=== PATIENT | male | born 1975 | race Caucasian/White ===

== ENCOUNTER → 2016-12-15 | Outpatient (CLI) | payer OTHER ==
--- NOTE | 2016-12-15 22:21 | MR ---
EXAMINATION TYPE: MR lumbar spine wo con DATE OF EXAM: 12/15/2016 COMPARISON: NONE HISTORY: Lumbar pain per order. Low back pain x 1-2 years per patient. TECHNIQUE: Multiplanar, multisequence imaging of the lumbar spine is performed without IV contrast. FINDINGS: Sagittal images of the lumbar spine show vertebral body heights and alignment to appear sat isfactory. There is disc desiccation L4-L5 and L5-S1 levels with small posterior disc herniations not ed on sagittal images. Increased signal posteriorly consistent with annular tear L4-L5 level is seen. The disc space heights are fairly well-maintained. The conus medullaris is normal in position and si gnal ending at mid L1 level. There is hemangioma posterior L2 vertebral level. There is some endplate change anterior inferior L5 endplate. No significant spurring is seen. Axial images show the T12-L1, L1-L2, L2-L3, and L3-L4 levels all to appear within normal limits. Axial images at the L4-L5 level show mild broad-based posterior disc protrusion minimally effacing th e anterior thecal sac, bilateral neural foramina are patent. There are mild facet degenerative change s seen bilaterally. Axial images at the L5-S1 level shows mild facet degenerative changes bilaterally. There is small yashira tral disc protrusion seen but spinal canal is preserved and bilateral neural foramina are patent. No suspicious retroperitoneal findings are seen. 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
== END | disposition home or self-care (01) ==
LOC: RADMRIMAIN 17:33
PROVIDERS: ATTEND Family Medicine
DX: M47.817 Spondylosis without myelopathy or radiculopathy, lumbosacral region (principal)
CPT/HCPCS: 72148